=== PATIENT | male | born 1985 | race Caucasian/White ===

== ENCOUNTER 2022-03-18 19:34 | Emergency (ER) | payer BC ==
[2022-03-18] MEDS ORDERED: Lactated Ringers 1,000 ML IV ONE (21:37)
[2022-03-18] MEDS ORDERED: Thiamine 100 MG in Sodium Chloride 0.9% 100 ML IV ONE (21:38)
[2022-03-18] MEDS ORDERED: Folic Acid 1 MG Tab PO ONE (21:38)
== END 2022-03-19 00:40 | disposition home or self-care (01) ==
LOC: FB.ED 19:34
DX: R56.9 Unspecified convulsions (principal); F10.10 Alcohol abuse, uncomplicated; Z20.822 Contact with and (suspected) exposure to COVID-19
CPT/HCPCS: 36415; 70450; 80053; 80307; 81001; 85025; 96365; 99284; 99285-25; A9270-GY; J3411; J3490; J7120; U0002

== ENCOUNTER 2022-06-10 14:45 | Observation (INO) | payer BC ==
[2022-06-10] MEDS ORDERED: LORazepam 1 MG Tab PO ONE (14:56)
[2022-06-10] MEDS ORDERED: Ondansetron 8 MG Tab.DIS PO ONE (14:57)
[2022-06-10] MEDS ORDERED: Sodium Chloride 0.9% 1,000 ML IV ONE ×2 (14:58→16:41)
[2022-06-10 15:42] LABS: ESTIMATED GFR 81 mL/min (>60)
[2022-06-10] MEDS ORDERED: LORazepam 2 MG/ML SDV IVPUSH ONE (15:58)
[2022-06-10] MEDS ORDERED: Thiamine 100 MG in Sodium Chloride 0.9% 50 ML IV ONE ×2 (16:27→18:00)
[2022-06-10] MEDS ORDERED: LORazepam 2 MG/ML SDV IVPUSH PRN (16:34)
[2022-06-10] MEDS ORDERED: DIVALPROEX SODIUM 500 MG PO SCH (16:45)
[2022-06-10] MEDS ORDERED: Sodium Chloride 0.9% 10 ML Syringe FLUSH PRN (17:00)
[2022-06-10] MEDS: Multivitamin Tab PO SCH (17:25)
[2022-06-10] MEDS: Folic Acid 1 MG Tab PO SCH (17:25)
[2022-06-10] MEDS: Pantoprazole 40 MG Vial IV SCH (17:29)
[2022-06-10] MEDS ORDERED: Enoxaparin 40 MG/0.4 ML Syringe SUBCUT SCH (18:15)
[2022-06-10] MEDS: Divalproex Sodium Delayed-Release 500 MG Tab.CR PO SCH (18:42)
[2022-06-10] MEDS ORDERED: Sodium Chloride 0.9% 1,000 ML IV SCH (20:30)
[2022-06-10] MEDS ORDERED: Non-Formulary Medication 1 Each (Losartan [Cozaar] 25 MG Tablet) PO SCH (21:00)
[2022-06-10] MEDS: Losartan 25 MG Tab PO SCH (22:20)
[2022-06-10] MEDS: Sodium Chloride 0.9% 1,000 ML IV SCH (22:20)
[2022-06-11] MEDS: Sodium Chloride 0.9% 1,000 ML IV SCH (06:20)
[2022-06-11 07:08] LABS: ESTIMATED GFR 101 mL/min (>60)
[2022-06-11] MEDS: Losartan 25 MG Tab PO SCH (08:40)
[2022-06-11] MEDS: Folic Acid 1 MG Tab PO SCH (08:40)
[2022-06-11] MEDS: Pantoprazole 40 MG Vial IV SCH (08:41)
[2022-06-11] MEDS: Multivitamin Tab PO SCH (08:41)
[2022-06-11] MEDS ORDERED: ESCITALOPRAM OXALATE 10 MG PO SCH (09:00)
[2022-06-11] MEDS ORDERED: Divalproex Sodium Delayed-Release 250 MG Tab.CR PO SCH (10:00)
[2022-06-11] MEDS: Divalproex Sodium Delayed-Release 500 MG Tab.CR PO SCH (10:40)
[2022-06-11] MEDS ORDERED: LORazepam 0.5 MG Tab PO ONE (11:51)
[2022-06-11 15:57] VITALS: BP 128/90; PULSE 72
== END 2022-06-11 12:25 | disposition home or self-care (01) ==
LOC: FB.ED 14:45 → FB.MS 16:15
PROVIDERS: ADMIT Family Medicine; ATTEND Family Medicine
DX: F10.930 Alcohol use, unspecified with withdrawal, uncomplicated (principal); E86.0 Dehydration; I10 Essential (primary) hypertension; F31.81 Bipolar II disorder; F41.9 Anxiety disorder, unspecified; K70.10 Alcoholic hepatitis without ascites; F17.210 Nicotine dependence, cigarettes, uncomplicated; Z79.899 Other long term (current) drug therapy; Z98.890 Other specified postprocedural states
CPT/HCPCS: 36415; 80053; 83690; 83735; 85025; 96361; 96374; 99285-25; A9270-GY; C9113; J1650; J2060; J3411; J3490; J7030

== ENCOUNTER 2023-03-10 16:31 | Emergency (ER) | payer BC ==
[2023-03-10] MEDS ORDERED: Sodium Chloride 0.9% 10 ML Syringe FLUSH PRN (17:21)
[2023-03-10] MEDS ORDERED: Sodium Chloride 0.9% 1,000 ML IV ONE (17:21)
[2023-03-10] MEDS ORDERED: Ondansetron 4 MG/2 ML SDV IVPUSH ONE (17:21)
[2023-03-10] MEDS ORDERED: Thiamine 200 MG/2 ML MDV IVPUSH ONE (17:22)
[2023-03-10 18:00] LABS: ESTIMATED GFR 118 mL/min (>60)
[2023-03-10] MEDS ORDERED: LORazepam 2 MG/ML SDV IVPUSH ONE ×4 (18:48→22:46)
[2023-03-10] MEDS ORDERED: Magnesium Sulfate/Water 2 GM in Premix Bag 1 BAG IV ONE (18:48)
[2023-03-10] MEDS ORDERED: Sodium Chloride 0.9% 1,000 ML IV SCH (20:00)
[2023-03-10] MEDS ORDERED: SODIUM CHLORIDE 0.9% IV ONE (20:13)
[2023-03-10] MEDS ORDERED: PHENOBARBITAL SODIUM IV ONE (20:13)
== END 2023-03-10 22:53 ==
LOC: FB.ED 16:31
DX: F10.230 Alcohol dependence with withdrawal, uncomplicated (principal); K70.9 Alcoholic liver disease, unspecified; R25.1 Tremor, unspecified; I10 Essential (primary) hypertension; Z87.891 Personal history of nicotine dependence; Z79.899 Other long term (current) drug therapy
CPT/HCPCS: 36415; 80053; 80307; 81001; 83690; 83735; 85025; 96361; 96365; 96375; 96376; 99284-25; 99285; J2060; J2405; J3411; J3475; J3490; J7030

== ENCOUNTER 2023-05-15 06:42 | Emergency (ER) | payer BC ==
[2023-05-15] MEDS ORDERED: LORazepam 2 MG/ML SDV IVPUSH ONE (07:21)
[2023-05-15] MEDS ORDERED: Thiamine 200 MG/2 ML MDV IVPUSH ONE (07:24)
[2023-05-15] MEDS ORDERED: Sodium Chloride 0.9% 1,000 ML IV SCH (07:30)
[2023-05-15 07:51] LABS: BASOPHILS PERCENT AUTO 0.2 % (0.3-3.8); HEMATOCRIT 44.2 % (38.3-50.1); HEMOGLOBIN 15.4 g/dL (12.9-17.7); LYMPHOCYTES ABSOLUTE AUTO 1.3 x10-3/uL (0.5-4.5); LYMPHOCYTES PERCENT AUTO 11.3 % (15.8-45.3); MEAN CORPUSCULAR HGB CONC 34.8 g/dL (28.7-35.3); MEAN CORPUSCULAR VOLUME 94.8 fL (80.8-98.7); MEAN PLATELET VOLUME 7.1 fL (6.7-11.0); MONOCYTES ABSOLUTE AUTO 0.8 x10-3/uL (0.0-1.2); MONOCYTES PERCENT AUTO 6.8 % (5.5-15.2); NEUTROPHILS ABSOLUTE AUTO 9.2 x10-3/uL (1.7-6.9); NEUTROPHILS PERCENT AUTO 81.7 % (40.3-71.8); PLATELET COUNT,PLT 119 x10(3)uL (117-477); RED BLOOD CELL COUNT 4.66 x10(6)uL (3.90-5.90); RED CELL DISTRIBUTION WIDTH 13.9 % (12.4-15.0); WHITE BLOOD CELL COUNT,WBC 11.3 x10-3/uL (3.2-10.1)
[2023-05-15 08:08] LABS: A/G RATIO 1.2; ALANINE AMINOTRANSFERASE,ALT 59 U/L (12-36); ALBUMIN 3.8 g/dL (3.5-5.2); ALKALINE PHOSPHATASE 112 IU/L (56-112); BILIRUBIN TOTAL 1.5 mg/dL (0.1-1.3); BLOOD UREA NITROGEN,BUN 11 mg/dL (7-18); CALCIUM 8.8 mg/dL (8.6-10.2); CARBON DIOXIDE,CO2 26 mmol/L (21-32); CREATININE 1.1 mg/dL (0.70-1.30); ESTIMATED GFR 89 mL/min (>60); GLUCOSE RANDOM 118 mg/dL (80-116); POTASSIUM,K 3.5 mmol/L (3.5-5.3); SODIUM,NA 130 mmol/L (135-145)
[2023-05-15 08:11] LABS: ASPARTATE AMNIOTRANSFERASE,AST 161 IU/L (5-25); CHLORIDE,CL 89 mmol/L (100-110)
== END 2023-05-15 08:45 | disposition home or self-care (01) ==
LOC: FB.ED 06:42
DX: F10.10 Alcohol abuse, uncomplicated (principal); I10 Essential (primary) hypertension; F17.210 Nicotine dependence, cigarettes, uncomplicated; Z79.899 Other long term (current) drug therapy
CPT/HCPCS: 36415; 80053; 80307; 85025; 96361; 96374; 96375; 99283; 99284-25; J2060; J3411; J7030

== ENCOUNTER 2023-05-22 19:14 | Emergency (ER) | payer BC ==
[2023-05-22] MEDS ORDERED: Acetaminophen/HYDROcodone 325-5 MG Tab PO ONE (19:15)
[2023-05-22 20:10] LABS: BASOPHILS PERCENT AUTO 0.3 % (0.3-3.8); EOSINOPHILS ABSOLUTE AUTO 0.1 x10-3/uL (0.0-0.6); EOSINOPHILS PERCENT AUTO 1.2 % (0.1-6.8); HEMATOCRIT 36.1 % (38.3-50.1); LYMPHOCYTES ABSOLUTE AUTO 2.1 x10-3/uL (0.5-4.5); LYMPHOCYTES PERCENT AUTO 35.9 % (15.8-45.3); MEAN CORPUSCULAR HEMOGLOBIN 33.3 pg (27.0-33.3); MEAN CORPUSCULAR HGB CONC 33.1 g/dL (28.7-35.3); MEAN CORPUSCULAR VOLUME 100.6 fL (80.8-98.7); MEAN PLATELET VOLUME 7.3 fL (6.7-11.0); MONOCYTES ABSOLUTE AUTO 0.7 x10-3/uL (0.0-1.2); MONOCYTES PERCENT AUTO 12.1 % (5.5-15.2); NEUTROPHILS ABSOLUTE AUTO 2.9 x10-3/uL (1.7-6.9); NEUTROPHILS PERCENT AUTO 50.5 % (40.3-71.8); PLATELET COUNT,PLT 359 x10(3)uL (117-477); RED BLOOD CELL COUNT 3.59 x10(6)uL (3.90-5.90); RED CELL DISTRIBUTION WIDTH 15.4 % (12.4-15.0); WHITE BLOOD CELL COUNT,WBC 5.8 x10-3/uL (3.2-10.1)
[2023-05-22 20:16] LABS: BLOOD UREA NITROGEN,BUN 10 mg/dL (7-18); BUN/CREATININE RATIO 9.1 (9-20); C-REACTIVE PROTEIN 1.8 mg/dL (0.5-0.9); CALCIUM 8.4 mg/dL (8.6-10.2); CARBON DIOXIDE,CO2 28 mmol/L (21-32); CHLORIDE,CL 103 mmol/L (100-110); CREATININE 1.1 mg/dL (0.70-1.30); ESTIMATED GFR 89 mL/min (>60); GLUCOSE RANDOM 99 mg/dL (80-116); POTASSIUM,K 3.6 mmol/L (3.5-5.3); SODIUM,NA 139 mmol/L (135-145)
[2023-05-22 20:27] LABS: A/G RATIO 0.9; ALANINE AMINOTRANSFERASE,ALT 93 U/L (12-36); ALBUMIN 3.2 g/dL (3.5-5.2); ALKALINE PHOSPHATASE 82 IU/L (56-112); ASPARTATE AMNIOTRANSFERASE,AST 69 IU/L (5-25); BILIRUBIN TOTAL 0.2 mg/dL (0.1-1.3); PROTEIN TOTAL,TP 6.7 g/dL (6.0-8.0)
[2023-05-22 21:06] LABS: BILIRUBIN,URINE NEGATIVE (NEGATIVE); GLUCOSE,URINE NORMAL (NORMAL); KETONES,URINE NEGATIVE (NEGATIVE); LEUKOCYTE ESTERASE,URINE NEGATIVE (NEGATIVE); NITRITE,URINE NEGATIVE (NEGATIVE); OCCULT BLOOD,URINE NEGATIVE (NEGATIVE); PROTEIN,URINE NEGATIVE (NEGATIVE); UROBILINOGEN,URINE NORMAL (NEGATIVE)
[2023-05-22 21:13] LABS: APPEARANCE,URINE CLEAR (CLEAR); BACTERIA,URINE OCCASIONAL (NS); COLOR,URINE YELLOW (YELLOW); RBC,URINE NOT SEEN (0-5); SQUAMOUS EPITHELIAL CELLS,UR OCCASIONAL (NS,R,O); WBC,URINE 0-5 (0-5)
== END 2023-05-22 22:10 | disposition home or self-care (01) ==
LOC: FB.ED 19:14
DX: K85.90 Acute pancreatitis without necrosis or infection, unspecified (principal); K56.7 Ileus, unspecified; D75.89 Other specified diseases of blood and blood-forming organs; E88.09 Other disorders of plasma-protein metabolism, not elsewhere classified; R74.8 Abnormal levels of other serum enzymes; R79.82 Elevated C-reactive protein (CRP); I10 Essential (primary) hypertension; Z79.899 Other long term (current) drug therapy; Z72.0 Tobacco use
CPT/HCPCS: 36415; 80053; 81001; 83605; 83690; 83735; 85025; 86140; 99284; A9270

== ENCOUNTER 2023-11-09 16:22 | Emergency (ER) | payer BC ==
[2023-11-09] MEDS ORDERED: Sodium Chloride 0.9% 10 ML Syringe FLUSH PRN (16:45)
[2023-11-09] MEDS ORDERED: Ondansetron 4 MG/2 ML SDV IVPUSH ONE (16:47)
[2023-11-09] MEDS ORDERED: Morphine 4 MG/ML VIAL IVPUSH ONE (16:47)
[2023-11-09] MEDS ORDERED: Sodium Chloride 0.9% 1,000 ML IV ONE (16:51)
[2023-11-09] MEDS ORDERED: Iopamidol 755 Mg/ML 100 ML Bottle IV ONE (17:51)
[2023-11-09 19:10] LABS: BILIRUBIN,URINE SMALL (NEGATIVE); GLUCOSE,URINE NORMAL (NORMAL); KETONES,URINE NEGATIVE (NEGATIVE); LEUKOCYTE ESTERASE,URINE NEGATIVE (NEGATIVE); NITRITE,URINE NEGATIVE (NEGATIVE); OCCULT BLOOD,URINE NEGATIVE (NEGATIVE); PROTEIN,URINE NEGATIVE (NEGATIVE); UROBILINOGEN,URINE NORMAL (NEGATIVE)
[2023-11-09 19:16] LABS: APPEARANCE,URINE CLEAR (CLEAR); COLOR,URINE YELLOW (YELLOW); RBC,URINE 0-5 (0-5); WBC,URINE 0-5 (0-5)
[2023-11-09 19:17] LABS: BACTERIA,URINE OCCASIONAL (NS); SQUAMOUS EPITHELIAL CELLS,UR OCCASIONAL (NS,R,O)
[2023-11-09 19:44] LABS: CARBON DIOXIDE,CO2 24 mmol/L (21-32); CHLORIDE,CL 98 mmol/L (100-110); SODIUM,NA 132 mmol/L (135-145)
[2023-11-09 19:45] LABS: BLOOD UREA NITROGEN,BUN 9 mg/dL (7-18); CALCIUM 7.3 mg/dL (8.6-10.2); CREATININE 0.9 mg/dL (0.70-1.30); EST CRCL DRUG DOSING (CG) 112.38 mL/min; ESTIMATED GFR 113 mL/min (>60); GLUCOSE RANDOM 103 mg/dL (80-116)
[2023-11-09 19:46] LABS: A/G RATIO 0.9; ALBUMIN 2.8 g/dL (3.5-5.2); ALKALINE PHOSPHATASE 452 IU/L (56-112); BILIRUBIN TOTAL 7.1 mg/dL (0.1-1.3); PROTEIN TOTAL,TP 6.1 g/dL (6.0-8.0)
[2023-11-09 19:47] LABS: ALANINE AMINOTRANSFERASE,ALT 153 U/L (12-36); AMYLASE 91 U/L (25-115); ASPARTATE AMNIOTRANSFERASE,AST 658 IU/L (5-25)
[2023-11-09 20:25] LABS: INR 1.18 (1.00-1.24); PTT,PARTIAL THROMBOPLSTIN TIME 40.1 SECONDS (24.4-33.2)
[2023-11-09] MEDS ORDERED: Spironolactone 50 MG Tab PO ONE (20:25)
[2023-11-09 20:27] LABS: HEMATOCRIT 32.2 % (38.3-50.1); PROTHROMBIN TIME 13.9 sec (9.0-11.1); RED BLOOD CELL COUNT 3.48 x10(6)uL (3.90-5.90)
[2023-11-09 20:28] LABS: MEAN CORPUSCULAR HEMOGLOBIN 34.5 pg (27.0-33.3); MEAN CORPUSCULAR HGB CONC 37.3 g/dL (28.7-35.3); MEAN CORPUSCULAR VOLUME 92.5 fL (80.8-98.7)
[2023-11-09 20:29] LABS: PLATELET COUNT,PLT 24 x10(3)uL (117-477)
[2023-11-09 20:30] LABS: BASOPHILS PERCENT AUTO 0.4 % (0.3-3.8); EOSINOPHILS PERCENT AUTO 0.4 % (0.1-6.8); LYMPHOCYTES PERCENT AUTO 24.1 % (15.8-45.3); MONOCYTES PERCENT AUTO 3.6 % (5.5-15.2); NEUTROPHILS PERCENT AUTO 71.1 % (40.3-71.8)
[2023-11-09 20:31] LABS: LYMPHOCYTES ABSOLUTE AUTO 1.3 x10-3/uL (0.5-4.5); MONOCYTES ABSOLUTE AUTO 0.2 x10-3/uL (0.0-1.2); NEUTROPHILS ABSOLUTE AUTO 3.7 x10-3/uL (1.7-6.9)
[2023-11-09 20:33] LABS: WHITE BLOOD CELL COUNT,WBC 5.2 x10-3/uL (3.2-10.1)
== END 2023-11-09 21:04 | disposition home or self-care (01) ==
LOC: FB.ED 16:22
DX: K70.11 Alcoholic hepatitis with ascites (principal); D61.818 Other pancytopenia; F17.210 Nicotine dependence, cigarettes, uncomplicated; I10 Essential (primary) hypertension; Z79.899 Other long term (current) drug therapy
CPT/HCPCS: 36415; 74177; 80053; 81001; 82150; 83690; 85025; 85610; 85730; 96361; 96374; 96375; 99284; A9270; J2270; J2405; J3490; J7030; Q9967

== ENCOUNTER 2023-11-26 08:53 | Emergency (ER) | payer BC ==
[2023-11-26 09:48] LABS: BLOOD UREA NITROGEN,BUN 8 mg/dL (7-18); BUN/CREATININE RATIO 11.4 (9-20); CALCIUM 8.7 mg/dL (8.6-10.2); CARBON DIOXIDE,CO2 29 mmol/L (21-32); CHLORIDE,CL 102 mmol/L (100-110); CREATININE 0.7 mg/dL (0.70-1.30); EST CRCL DRUG DOSING (CG) 148.32 mL/min; ESTIMATED GFR 122 mL/min (>60); GLUCOSE RANDOM 95 mg/dL (80-116); POTASSIUM,K 3.7 mmol/L (3.5-5.3); SODIUM,NA 139 mmol/L (135-145)
[2023-11-26 09:51] LABS: BASOPHILS ABSOLUTE AUTO 0.1 x10-3/uL (0.0-0.3); BASOPHILS PERCENT AUTO 1.2 % (0.3-3.8); EOSINOPHILS ABSOLUTE AUTO 0.1 x10-3/uL (0.0-0.6); EOSINOPHILS PERCENT AUTO 0.7 % (0.1-6.8); HEMOGLOBIN 11.3 g/dL (12.9-17.7); LYMPHOCYTES ABSOLUTE AUTO 2.5 x10-3/uL (0.5-4.5); LYMPHOCYTES PERCENT AUTO 21.9 % (15.8-45.3); MEAN CORPUSCULAR HEMOGLOBIN 36.3 pg (27.0-33.3); MEAN CORPUSCULAR HGB CONC 33.4 g/dL (28.7-35.3); MEAN CORPUSCULAR VOLUME 108.7 fL (80.8-98.7); MEAN PLATELET VOLUME 8.6 fL (6.7-11.0); MONOCYTES ABSOLUTE AUTO 0.8 x10-3/uL (0.0-1.2); MONOCYTES PERCENT AUTO 6.7 % (5.5-15.2); NEUTROPHILS ABSOLUTE AUTO 7.9 x10-3/uL (1.7-6.9); NEUTROPHILS PERCENT AUTO 69.5 % (40.3-71.8); PLATELET COUNT,PLT 247 x10(3)uL (117-477); RED CELL DISTRIBUTION WIDTH 16.9 % (12.4-15.0); WHITE BLOOD CELL COUNT,WBC 11.4 x10-3/uL (3.2-10.1)
[2023-11-26 09:54] LABS: A/G RATIO 0.6; ALANINE AMINOTRANSFERASE,ALT 48 U/L (12-36); ALBUMIN 2.5 g/dL (3.5-5.2); ALKALINE PHOSPHATASE 275 IU/L (56-112); ASPARTATE AMNIOTRANSFERASE,AST 148 IU/L (5-25); BILIRUBIN TOTAL 2.6 mg/dL (0.1-1.3); PROTEIN TOTAL,TP 6.4 g/dL (6.0-8.0)
[2023-11-26 09:59] LABS: RED BLOOD CELL COUNT 3.13 x10(6)uL (3.90-5.90)
[2023-11-26 10:01] LABS: TROPONIN I 4.8 pg/mL (4.0-60.3)
== END 2023-11-26 11:05 | disposition home or self-care (01) ==
LOC: FB.ED 08:53
DX: R60.9 Edema, unspecified (principal)
CPT/HCPCS: 36415; 71045; 80053; 83880; 84484; 85025; 85379; 93005; 99284

== ENCOUNTER 2024-06-27 22:32 | Emergency (ER) | payer BC ==
[2024-06-27 23:01] LABS: BASOPHILS PERCENT AUTO 0.3 % (0.3-3.8); EOSINOPHILS PERCENT AUTO 0.2 % (0.1-6.8); HEMATOCRIT 42.7 % (38.3-50.1); HEMOGLOBIN 14.2 g/dL (12.9-17.7); LYMPHOCYTES ABSOLUTE AUTO 4.9 x10-3/uL (0.5-4.5); LYMPHOCYTES PERCENT AUTO 40.4 % (15.8-45.3); MEAN CORPUSCULAR HEMOGLOBIN 33.8 pg (27.0-33.3); MEAN CORPUSCULAR HGB CONC 33.2 g/dL (28.7-35.3); MEAN CORPUSCULAR VOLUME 101.9 fL (80.8-98.7); MONOCYTES ABSOLUTE AUTO 1.2 x10-3/uL (0.0-1.2); MONOCYTES PERCENT AUTO 10.1 % (5.5-15.2); PLATELET COUNT,PLT 134 x10(3)uL (117-477); RED CELL DISTRIBUTION WIDTH 13.5 % (12.4-15.0); WHITE BLOOD CELL COUNT,WBC 12.2 x10-3/uL (3.2-10.1)
[2024-06-27] MEDS: Sodium Chloride 0.9% 1,000 ML IV ONE (23:09)
[2024-06-27 23:10] LABS: RED BLOOD CELL COUNT 4.19 x10(6)uL (3.90-5.90)
[2024-06-27 23:13] LABS: C-REACTIVE PROTEIN 1.51 mg/dL (<0.50); ETHANOL BLOOD MEDICAL 0.06 % (<0.03)
[2024-06-27] MEDS: levETIRAcetam in NaCl (iso-os) 1,500 MG in Premix Bag 100 BAG IV ONE (23:14)
[2024-06-27 23:15] LABS: ALBUMIN 4.2 g/dL (3.5-5.2); ALKALINE PHOSPHATASE 440 IU/L (56-112); BILIRUBIN TOTAL 3.2 mg/dL (0.1-1.3); BLOOD UREA NITROGEN,BUN 3 mg/dL (7-18); BUN/CREATININE RATIO 1.8 (9-20); CALCIUM 9.5 mg/dL (8.6-10.2); CHLORIDE,CL 91 mmol/L (100-110); CREATININE 1.7 mg/dL (0.70-1.30); ESTIMATED GFR 53 mL/min (>60); GLUCOSE RANDOM 150 mg/dL (80-116); MAGNESIUM 1.7 mg/dL (1.8-2.5); POTASSIUM,K 3.3 mmol/L (3.5-5.3); PROTEIN TOTAL,TP 8.5 g/dL (6.0-8.0); SODIUM,NA 136 mmol/L (135-145)
[2024-06-27 23:17] LABS: ALANINE AMINOTRANSFERASE,ALT 158 U/L (12-36); ASPARTATE AMNIOTRANSFERASE,AST 335 IU/L (5-25); CARBON DIOXIDE,CO2 11 mmol/L (21-32)
[2024-06-27 23:43] LABS: INR 0.97 (1.00-1.24); PROTHROMBIN TIME 10.1 sec (9.0-11.1)
[2024-06-27] MEDS: Potassium Chloride 10 MEQ in Premix Bag 1 BAG IV ONE (23:52)
== END 2024-06-28 00:06 ==
LOC: FB.ED 22:32
DX: R56.9 Unspecified convulsions (principal); S06.5XAA Traumatic subdural hemorrhage with loss of consciousness status unknown, initial encounter; K70.10 Alcoholic hepatitis without ascites; F10.10 Alcohol abuse, uncomplicated; E87.6 Hypokalemia; E83.42 Hypomagnesemia; R79.89 Other specified abnormal findings of blood chemistry; D75.89 Other specified diseases of blood and blood-forming organs; E87.8 Other disorders of electrolyte and fluid balance, not elsewhere classified; I10 Essential (primary) hypertension; F17.210 Nicotine dependence, cigarettes, uncomplicated; Y90.9 Presence of alcohol in blood, level not specified; Z79.899 Other long term (current) drug therapy; W19.XXXA Unspecified fall, initial encounter
CPT/HCPCS: 36415; 70450; 71045; 80053; 80307; 83690; 83735; 85025; 85610; 85730; 86140; 96365; 96375; 99285; J1953; J3480; J7030

== ENCOUNTER 2024-07-09 17:11 | Emergency (ER) | payer BC, MEDICAID ==
[2024-07-09] MEDS ORDERED: Acetaminophen/HYDROcodone 325-5 MG Tab PO ONE (17:12)
[2024-07-09] MEDS: Acetaminophen/HYDROcodone 325-5 MG Tab PO ONE (17:51)
== END 2024-07-09 19:01 | disposition home or self-care (01) ==
LOC: FB.ED 17:11
DX: R51.9 Headache, unspecified (principal); G89.18 Other acute postprocedural pain; F17.200 Nicotine dependence, unspecified, uncomplicated; I10 Essential (primary) hypertension; Z48.811 Encounter for surgical aftercare following surgery on the nervous system; Z79.899 Other long term (current) drug therapy
CPT/HCPCS: 99283; A9270

== ENCOUNTER 2024-07-15 19:12 | Emergency (ER) | payer BC ==
[2024-07-15 20:10] LABS: BASOPHILS ABSOLUTE AUTO 0.1 x10-3/uL (0.0-0.3); BASOPHILS PERCENT AUTO 1.9 % (0.3-3.8); EOSINOPHILS PERCENT AUTO 0.7 % (0.1-6.8); HEMATOCRIT 35.5 % (38.3-50.1); HEMOGLOBIN 11.7 g/dL (12.9-17.7); LYMPHOCYTES ABSOLUTE AUTO 2.9 x10-3/uL (0.5-4.5); LYMPHOCYTES PERCENT AUTO 43.4 % (15.8-45.3); MEAN CORPUSCULAR HEMOGLOBIN 32.8 pg (27.0-33.3); MEAN CORPUSCULAR HGB CONC 32.9 g/dL (28.7-35.3); MEAN CORPUSCULAR VOLUME 99.6 fL (80.8-98.7); MEAN PLATELET VOLUME 6.7 fL (6.7-11.0); MONOCYTES ABSOLUTE AUTO 0.7 x10-3/uL (0.0-1.2); MONOCYTES PERCENT AUTO 10.2 % (5.5-15.2); NEUTROPHILS ABSOLUTE AUTO 2.9 x10-3/uL (1.7-6.9); NEUTROPHILS PERCENT AUTO 43.8 % (40.3-71.8); PLATELET COUNT,PLT 615 x10(3)uL (117-477); RED BLOOD CELL COUNT 3.56 x10(6)uL (3.90-5.90); RED CELL DISTRIBUTION WIDTH 13.9 % (12.4-15.0); WHITE BLOOD CELL COUNT,WBC 6.6 x10-3/uL (3.2-10.1)
[2024-07-15 20:12] LABS: BLOOD UREA NITROGEN,BUN 20 mg/dL (7-18); CALCIUM 8.5 mg/dL (8.6-10.2); CARBON DIOXIDE,CO2 26 mmol/L (21-32); CHLORIDE,CL 107 mmol/L (100-110); ESTIMATED GFR 99 mL/min (>60); GLUCOSE RANDOM 101 mg/dL (80-116); POTASSIUM,K 4.2 mmol/L (3.5-5.3); SODIUM,NA 143 mmol/L (135-145)
[2024-07-15 20:23] LABS: ALANINE AMINOTRANSFERASE,ALT 52 U/L (12-36); ALBUMIN 3.6 g/dL (3.5-5.2); ALKALINE PHOSPHATASE 182 IU/L (56-112); ASPARTATE AMNIOTRANSFERASE,AST 62 IU/L (5-25); BILIRUBIN TOTAL 0.4 mg/dL (0.1-1.3); MAGNESIUM 1.9 mg/dL (1.8-2.5); PROTEIN TOTAL,TP 7.3 g/dL (6.0-8.0)
== END 2024-07-15 22:05 | disposition home or self-care (01) ==
LOC: FB.ED 19:12
DX: F07.81 Postconcussional syndrome (principal); I10 Essential (primary) hypertension; Z79.899 Other long term (current) drug therapy
CPT/HCPCS: 36415; 70450; 80053; 83735; 85025; 99283; 99285